=== PATIENT | male | born 1985 | race Caucasian/White ===

== ENCOUNTER 2016-11-12 14:33 | Emergency (ER) | payer OTHER ==
[~2016-11-12] VITALS: Ht 177.8 cm; Wt 84.4 kg
[2016-11-12 14:49] VITALS: BP 124/60; PULSE 76; RESP 20; TEMP 98.4; O2SAT 97
--- NOTE | 2016-11-12 18:34 | NUR ---
AMBULATED TO BED 1
--- NOTE | 2016-11-12 18:43 | NUR ---
DR. GARCIA AT BEDSIDE
[2016-11-12] MEDS ORDERED: ONDANSETRON HCL 4 MG/2 ML VIAL IM ONE (19:00)
[2016-11-12] MEDS ORDERED: HYDROmorphone 2 MG/ML VIAL IM ONE (19:00)
--- NOTE | 2016-11-12 19:14 | NUR ---
MEDICATED PT WITH DILAUDID AND ZOFRAN IM ORDERED.
--- NOTE | 2016-11-12 19:15 | NUR ---
TRANSFERRED CARE TO PHOTOGRAPHER SCIENTIFIC NURSE.
[2016-11-12 19:32] VITALS: BP 120/68; PULSE 74; RESP 16; TEMP 98.4; O2SAT 97
--- NOTE | 2016-11-12 19:32 | NUR ---
Patient given written and verbal discharge instructions and verbalizes understanding. ER MD discussed with patient the results and treatment provided. Patient in stable condition. ID arm band removed. Rx of Collins and Motrin given. Patient educated on pain management and to follow up with PMD. Pain Scale 2/10, Tolerable by patient. Opportunity for questions provided and answered.
== END 2016-11-12 19:32 | disposition home or self-care (01) ==
LOC: SED 14:33
DX: M54.30 Sciatica, unspecified side (principal)
CPT/HCPCS: 72100; 96372; 99284; J1170; J2405